=== PATIENT | female | born 1970 | race Caucasian/White ===

== ENCOUNTER 2020-10-19 23:36 | Emergency (ER) | payer MEDICAID, SELFPAY ==
[2020-10-19 23:43] VITALS: BP 135/79; PULSE 95; RESP 100; TEMP 36.9; O2SAT 100; BMI 23.1
--- NOTE | 2020-10-20 00:04 | W.ED.BACK ---
HPI - Back Pain/Injury General: Chief Complaint: Back Pain/Injury Stated Complaint: CYST ON BACK THAT IS CAUSING NUMBNESS TO BACK Time Seen by Provider: 10/19/20 23:50 Source: patient Mode of arrival: ambulatory Limitations: no limitations History of Present Illness: HPI Narrative: 42-year-old female states that she noticed a area growth on her back that started roughly 2 years ago. States its started out very small and is gradually increased in size is now roughly the size of a baseball. States it does not cause any pain but she does have some numbness back there. She did not had any drainage from the site. Denies any fever. Denies any injuries. She denies any worsening improving factors. Associated symptoms: Deny abdominal pain, chills, dysuria, fever(s), nausea or vomiting Review of Systems Const: Denies: fever(s), chills, body aches or change in appetite Eyes: Denies: blurry vision or eye discomfort ENMT: Denies: throat pain or dental pain Card: Denies: chest pain Resp: Denies: dyspnea GI: Denies: abdominal pain, nausea, vomiting or diarrhea : Denies: dysuria Musc: Denies: neck pain or back pain Skin/Breast: Denies: rash Neuro: Denies: headache(s) Psych: Denies: depression [place]onte/Lymph: Denies: easy bruising All/Imm: Denies: urticaria [facility]LY [facility] ED Female Reproductive History: Date of last menstrual period: 09/19/20 Physical Exam Const: COMMON NORMALS: no acute distress, patient oriented x3 and healthy appearing HENMT: COMMON NORMALS: normocephalic and atraumatic HEAD & SCALP: normocephalic and atraumatic Eye: COMMON NORMALS: Equal, round and reactive pupils present and EOMs intact bilaterally PUPIL: Yes Equal, round and reactive pupils present Neck/C-Spine: COMMON NORMALS: full ROM and supple Chest: COMMONS NORMALS: normal inspection of the chest Resp: COMMON NORMALS: normal respiratory effort, No retractions and No use of accessory muscles Cardio: COMMON NORMALS: regular rate RATE: regular rate GI: INSPECTION: Yes normal to inspection Extremity: COMMON NORMALS: normal to inspection Neuro: COMMON NORMALS: patient oriented x3, moves all extremities and no focal motor deficits Psych: COMMON NORMALS: mental status grossly normal, Normal thought process present and cooperative THOUGHT PROCESS: Normal thought process present Skin: COMMON NORMALS: no wounds NARRATIVE SKIN EXAM: Patient has a movable mass over her right shoulder blade of the size of a baseball. Likely lipoma Course Vital Signs: Vital signs: Vital Signs Temperature 98.4 F 10/19/20 23:43 Pulse Rate 95 10/19/20 23:43 Respiratory Rate 100 H 10/19/20 23:43 Blood Pressure 135/79 10/19/20 23:43 Pulse Oximetry 100 10/19/20 23:43 MDM - Back Pain/Injury MDM Narrative: Medical decision making narrative: Patient presents here with a mass is likely a lipoma. Is movable and not an abscess. A did numb the area 6 cc of lidocaine and placed a 18-gauge needle and had no fluid in the area. Instructed patient that she needs to follow-up with dermatology believe this is likely a lipoma. She is return if any worsening. Discharge Plan Discharge Patient Disposition: Home Clinical Impression: Lipoma Qualifiers: Lipoma location: trunk Qualified Code(s): D17.1 - Benign lipomatous neoplasm of skin and subcutaneous tissue of trunk Condition: Stable Prescriptions: No Action No Known Home Medications RF: 0 Discharge Orders: Discharge ED (Routine); Ordered 10/20/20 Ordered By: Hattie Hodge Referrals: Skylar Amador DO [Physician] - 4-7 days Muse,TERI Edwards [Primary Care Provider] - Discharge Diet: Advance as tolerated Discharge Activity: Resume usual activity Patient Instructions: Lipoma (ED) Coding Level of Care Code ED Marketing Automation Analyst for [facility] Lan
[2020-10-20 00:16] VITALS: BP 135/79; PULSE 95; RESP 18; O2SAT 100
--- NOTE | 2020-10-20 00:16 | W.ED.BACK ---
HPI - Back Pain/Injury General: Chief Complaint: Back Pain/Injury Stated Complaint: CYST ON BACK THAT IS CAUSING NUMBNESS TO BACK Time Seen by Provider: 10/19/20 23:50 Source: patient Limitations: no limitations [facility]LY [facility] ED Female Reproductive History: Date of last menstrual period: 09/19/20 Course Vital Signs: Vital signs: Vital Signs Temperature 98.4 F 10/19/20 23:43 Pulse Rate 95 10/20/20 00:16 Respiratory Rate 18 10/20/20 00:16 Blood Pressure 135/79 10/20/20 00:16 Pulse Oximetry 100 10/20/20 00:16 MDM - Back Pain/Injury MDM Narrative: Medical decision making narrative: This chart was open by accident I did not see this patient. Discharge Plan Discharge Patient Disposition: Home Clinical Impression: Lipoma Qualifiers: Lipoma location: trunk Qualified Code(s): D17.1 - Benign lipomatous neoplasm of skin and subcutaneous tissue of trunk Condition: Stable Prescriptions: No Action No Known Home Medications RF: 0 Discharge Orders: Discharge ED (Routine); Ordered 10/20/20 Ordered By: Hattie Hodge Referrals: Skylar Amador DO [Physician] - 4-7 days Muse,TERI Edwards [Primary Care Provider] - Discharge Diet: Advance as tolerated Discharge Activity: Resume usual activity Patient Instructions: Lipoma (ED) Coding Level of Care Code ED Manager Risk Management for Josephine Lan
--- NOTE | 2020-10-20 10:12 | DCPLANNER ---
manager night had message to schedule a follow up appointment for patient with dermatology. manager night called the office of Dr. Amador, mechanical commissioning engineer. manager night was unable to speak with anyone at this time, a voicemail was left for clinic to call [employer] back for a referral to the clinic.
--- NOTE | 2020-10-26 07:31 | DCPLANNER ---
Patient has a follow up appointment scheduled for Sunday, December 15, 2020 at 1:[address] Amador at Dermatology. Clinic will call patient with appointment information.
--- NOTE | 2020-12-29 07:12 | DCPLANNER ---
Patient had a follow up appointment scheduled for 12.15.[address] Amador at dermatology - patient did attend appointment.
== END 2020-10-20 00:10 | disposition home or self-care (01) ==
PROVIDERS: Emergency Provider Emergency Medicine; PCP Nurse Practitioner Family
DX: D17.1 Benign lipomatous neoplasm of skin and subcutaneous tissue of trunk (principal)
CPT/HCPCS: 99282